=== PATIENT | male | born 1950 | race Caucasian/White ===

== ENCOUNTER 2019-01-06 19:14 | Emergency (ER) | payer MEDICARE, OTHER ==
--- NOTE | 2019-01-06 19:55 | ED Physician Documentation ---
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 He washed it wrapped it and put Neosporin on it. Then tonight he was sitting at dinner with his when he got this sudden onset of an achy pain in his left index finger PIP joint. He does have a history of rheumatoid arthritis. Denies any fever or nausea. He did not actually crushed the finger he just slid it crossed some metal. He is uncertain when his last tetanus vaccine was. Review of Systems Constitutional: denies: Fever Skin: reports: Laceration (s) Musculoskeletal: reports: Joint pain Endocrine: reports: Other (He is not diabetic) Immunocompromised: denies: Immunocompromised PD PAST MEDICAL HISTORY - Past Medical History Past Medical History: Yes Cardiovascular: High cholesterol Psych: None Musculoskeletal: Rheumatoid arthritis - Past Surgical History Past Surgical History: Yes General: Colonoscopy Ortho: Carpal Tunnel surgery - Allergies Allergies/Adverse Reactions: Allergies Allergy/AdvReac Type Severity Reaction Status Date / Time No Known Drug Allergies Allergy Verified 01/06/19 19:27 - Social History Does the pt smoke?: No Smoking Status: Former smoker Does the pt drink ETOH?: Yes ETOH Use: Wine Does the pt have substance abuse?: Yes Substance Use and Type: Marijuana - Immunizations Immunizations are current?: No Immunizations: TDAP current <10years - POLST Patient has POLST: No PD ED PE NORMAL - Vitals Vital signs reviewed: Yes - General General: Alert and oriented X 3, No acute distress, Well developed/nourished - HEENT HEENT: Atraumatic - Cardiac Cardiac: RRR - Respiratory Respiratory: No respiratory distress - Derm Derm: Other (The pad of the index finger has a curvilinear laceration with the flap stuck back down over the opening. Its about a centimeter wide with the isthmus at the most distal portion. It is a little dusky. There is no erythema. He does have some enlargement of the joints consistent with arthritis but there is no erythema or obvious effusion in the PIP or DIP joint. There is no redness surrounding the wound or purulent drainage.) - Extremities Extremities: Other (See above Derm comments) - Neuro Neuro: Alert and oriented X 3, Normal speech, Other (No gross deficits.) - Psych Psych: Normal mood, Normal affect Results - Vitals Vitals: Oxygen O2 Source Room air PD MEDICAL DECISION MAKING - ED course ED course: There is no obvious sign of infection at this time. I recommended that he take an anti-inflammatory for the pain in the joint and we discussed wound care and and how long this is going to take to heal. He should monitor at home for infection and follow-up at that time if he notices spreading redness, purulent drainage or increasing pain. Departure - Departure Disposition: 01 Home, Self Care Clinical Impression: Laceration Condition: Good Instructions: ED Laceration Small Superf No Sutr Follow-Up: Timothy Tolbert MD [Primary Care Provider] - Comments: Wash the wound with Hibiclens daily. If he can leave our bandage on for couple of days or change the bandage and just keep this very clean and dry go along way towards healing. Take Advil if needed for pain. Continue to monitor this for any developing signs of infection including increasing swelling, redness that spreading up the finger, fever or other problems arise. Discharge Date/Time: 01/06/19 20:30
[2019-01-06] MEDS ORDERED: BACITRACIN OINT TOP STA (20:10)
[2019-01-06] MEDS ORDERED: TETANUS/DIPHTHERIA/PERTUSSIS 0.5 ML SYRINGE IM ONE (20:11)
[2019-01-06 20:50] VITALS: BP 142/68
== END 2019-01-06 20:30 | disposition home or self-care (01) ==
LOC: ED 19:14
DX: S61.211A Laceration without foreign body of left index finger without damage to nail, initial encounter (principal); W26.8XXA Contact with other sharp object(s), not elsewhere classified, initial encounter; Y93.H3 Activity, building and construction; Y99.0 Civilian activity done for income or pay; Z23 Encounter for immunization; M06.9 Rheumatoid arthritis, unspecified; Z87.891 Personal history of nicotine dependence
CPT/HCPCS: 90471; 90715; 99282; 99283; A9270

== ENCOUNTER 2020-10-24 08:00 | Outpatient (CLI) | payer MEDICARE, OTHER ==
--- NOTE | 2020-10-24 16:40 | XRAY Report ---
PROCEDURE: Hand 3 View LT INDICATIONS: PAIN IN LEFT HAND TECHNIQUE: 3 views of the hand(s) acquired. COMPARISON: None FINDINGS: Bones: No acute fractures or dislocations. No suspicious bony lesions. Moderate degenerative shafer es of the left hand involving the metacarpophalangeal joints predominantly of the thumb, second, and third fingers. Moderate degenerative changes of the proximal interphalangeal joints of the second thr ough fifth fingers. Degenerative changes of the interphalangeal joint of the left thumb. There are al so moderate degenerative changes of the first carpometacarpal joint and triscaphe joint. Soft tissues: No suspicious soft tissue calcifications. No radiopaque soft tissue foreign bodies. IMPRESSION: Left hand without acute fracture or dislocation. No radiopaque soft tissue foreign bodies. 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 Reviewed by: Carmine Garcia MD on 10/24/2020 4:39 PM PDT Approved by: Carmine Garcia MD on 10/24/2020 4:39 PM PDT Station ID: [id number]
== END 2020-10-24 23:59 | disposition home or self-care (01) ==
LOC: DI.S 08:00
PROVIDERS: ATTEND Physician Assistant Medical
DX: M79.642 Pain in left hand (principal)